=== PATIENT | female | born 1985 | race Caucasian/White ===

== ENCOUNTER 2022-11-01 03:37 | Outpatient (CLI) | payer OTHER, SELFPAY ==
[2022-11-01 11:44] LABS: HCT 35.3 % (36.0-46.0); HGB 11.7 g/dL (11.2-15.7); MCH 31.5 pg (27.0-33.0); MCHC 33.1 % (32.0-36.0); MCV 95 fL (80-95); MPV 10.4 fL (8.0-11.0); Platelet Count 250 10^3/uL (130-400); RBC 3.71 10^6/uL (3.93-5.22); RDW 12.4 % (11.7-14.6); RDW-SD 42.7 fL; WBC 8.69 10^3/uL (4.4-10.8)
[2022-11-01 12:40] LABS: TSH (W/Ref FT4) 1.67 uIU/mL (0.36-3.74)
== END 2022-11-01 03:38 | disposition home or self-care (01) ==
LOC: LBO 03:39
PROVIDERS: PCP Family Medicine; Visit Provider Advanced Practice Midwife
DX: E03.9 Hypothyroidism, unspecified; O99.283 Endocrine, nutritional and metabolic diseases complicating pregnancy, third trimester
CPT/HCPCS: 36415; 85027; 86850; 86900; 86901; 84443

== ENCOUNTER 2022-12-06 02:55 | Outpatient (CLI) | payer OTHER, SELFPAY ==
--- NOTE | 2022-12-06 07:45 | DI.US_ITS ---
Exam(s) US OB TERESA WEIGHT EXAM: US OB TERESA WEIGHT CLINICAL HISTORY: posterior pedunculated myoma growth,D25.9,o09.519. TECHNIQUE: Transabdominal obstetrical ultrasound was performed. COMPARISON: No exams were available for comparison FINDINGS: There is a single viable intrauterine gestation with cardiac activity identified-125 bpm The fetus is presently in cephalic position . Amniotic fluid: There is a normal amount of amniotic fluid with an TERESA of 16.45cm. Placental location: The placenta is posterior fundal grade 1,with no evidence of placenta previa. Dating parameters place this at approximately 33 weeks gestational age, implying COLLIN of Dec. BPD measures 33 weeks and 0 days HC measures 33 weeks and 6 days AC measures 32 weeks and 4 days FL measures 8 weeks and 4 days Estimated weight is 2039 gm-4 pounds 8 ounces Fetus is at the 15th percentile on the Hadlock scale. IMPRESSION:: Viable 3rd trimester gestation, as described above. Fetus is at the 15th percentile on the Hadlock scale. DATA REPOSITORY:
== END 2022-12-06 03:15 ==
LOC: DI 02:56
PROVIDERS: PCP Family Medicine; Visit Provider Advanced Practice Midwife
DX: D25.9 Leiomyoma of uterus, unspecified (principal); O09.513 Supervision of elderly primigravida, third trimester
CPT/HCPCS: 76816

== ENCOUNTER 2022-12-28 11:45 | Outpatient (CLI) | payer OTHER, SELFPAY ==
[2022-12-28 12:20] LABS: *AMPHETAMINES SCREEN URINE Negative (Negative); *BARBITURATES SCREEN URINE Negative (Negative); *BENZODIAZEPINES SCREEN URINE Negative (Negative); Cannabinoids THC Negative (Negative); Cocaine Screen,Urine Negative (Negative); METHADONE URINE SCREEN Negative (Negative); OPIATES URINE SCREEN Negative (Negative)
[2022-12-28 12:21] LABS: Tricyclic Antidepressants Negative (Negative)
[2023-01-04 18:52] LABS: Buprenorphine Negative ng/mL (Cutoff: 5.0); Norbuprenorphine Negative ng/mL (Cutoff: 2.5)
== END 2022-12-28 11:46 | disposition home or self-care (01) ==
LOC: LBN 11:46
PROVIDERS: PCP Family Medicine; Visit Provider Advanced Practice Midwife
DX: Z34.93 Encounter for supervision of normal pregnancy, unspecified, third trimester (principal); Z36.85 Encounter for antenatal screening for Streptococcus B; Z3A.37 37 weeks gestation of pregnancy
CPT/HCPCS: 80307; 80348; 87081

== ENCOUNTER 2023-01-04 07:14 | Outpatient (CLI) | payer OTHER, SELFPAY ==
[2023-01-04 09:27] VITALS: BP 109/73; PULSE 74; TEMP 36.8
[2023-01-04 09:40] VITALS: BP 109/73; PULSE 74
--- NOTE | 2023-01-04 10:30 | W.OBNST ---
Date of service: 01/04/23 Time of Service: 10:30 NST Evaluation Reason for NST Reasons for Nonstress Test: ADVANCED MATERNAL AGE Gestational Age Gestational Age in Weeks and Days: 38 Weeks and 0Days Test and Monitor Explained Test/Monitor Explained: Test Explained, Monitor Explained and Patient Verbalized Understanding Vital Signs Blood Pressure: 109/73 Pulse: 74 Temperature: 98.2 F NST Information Date on Monitor: 01/04/23 Time on Monitor: 09:20 Date off Monitor: 01/04/23 Time off Monitor: 09:50 Total Time on Monitor: 30 NST Interventions: PO Hydration NST Evaluation Patient States Movement: Present FHR Baseline: 120 Variability: Moderate 6-25 bpm Accelerations: 15x15 Decelerations: None NST Results: Reactive Note N/A NST Note Note: NST for AMA. Fabian reports clitoral lesion. small, pustular leasion noted. HSV PCR taken. Await results. RTO in 1 week for NST. NST Reviewed and Verified by: Gretta Madera
[2023-01-04 10:31] VITALS: BP 109/73; PULSE 74; TEMP 36.8
[2023-01-05 13:45] LABS: HSV 1 DNA Result Negative (Negative); HSV 2 DNA Result Negative (Negative)
== END 2023-01-04 10:05 | disposition home or self-care (01) ==
LOC: BCD 08:08 → OBS 09:18
PROVIDERS: PCP Family Medicine; Visit Provider Advanced Practice Midwife
DX: O09.513 Supervision of elderly primigravida, third trimester (principal); Z3A.38 38 weeks gestation of pregnancy
CPT/HCPCS: 59025; 87529